=== PATIENT | male | born 1970 | race African-American/Black ===

== ENCOUNTER 2019-05-07 12:21 | Emergency (ER) | payer OTHER ==
[~2019-05-07] VITALS: Ht 170.2 cm; Wt 81.8 kg
[2019-05-07] MEDS ORDERED: ACETAMINOPHEN 500 MG TABLET PO ONE (13:30)
[2019-05-07] MEDS ORDERED: LIDOCAINE 1%/EPI 1:200,000/PF 30 ML VIAL INJ ONE (13:30)
[2019-05-07] MEDS ORDERED: PERTUSS(ACELL),DIPH,TET VAC/PF 0.5 ML VIAL IM ONE (13:30)
[2019-05-07 16:22] VITALS: BP 128/86
== END 2019-05-07 16:23 | disposition home or self-care (01) ==
LOC: EMS 12:22
DX: L02.212 Cutaneous abscess of back [any part, except buttock and flank] (principal)
CPT/HCPCS: 10060; 99283; J3490

== ENCOUNTER 2019-05-09 13:08 | Emergency (ER) | payer OTHER ==
[~2019-05-09] VITALS: Ht 170.2 cm; Wt 81.8 kg
[2019-05-09] MEDS ORDERED: IBUPROFEN 800 MG TABLET PO ONE (14:30)
[2019-05-09 15:00] VITALS: BP 131/77
== END 2019-05-09 15:14 | disposition home or self-care (01) ==
LOC: EMS 13:08
DX: Z48.01 Encounter for change or removal of surgical wound dressing (principal)

== ENCOUNTER 2019-05-13 14:15 | Emergency (ER) | payer OTHER ==
[~2019-05-13] VITALS: Ht 177.8 cm; Wt 86.4 kg
[2019-05-13 14:31] VITALS: BP 136/94
== END 2019-05-13 16:58 | disposition home or self-care (01) ==
LOC: EMS 14:21
DX: Z48.01 Encounter for change or removal of surgical wound dressing (principal)

== ENCOUNTER 2019-05-16 18:34 | Emergency (ER) | payer OTHER ==
[~2019-05-16] VITALS: Ht 175.3 cm; Wt 84.5 kg
[2019-05-16 22:39] VITALS: BP 139/81
== END 2019-05-16 22:39 | disposition home or self-care (01) ==
LOC: EMS 18:34
DX: L02.212 Cutaneous abscess of back [any part, except buttock and flank] (principal)